=== PATIENT | male | born 2000 | race Caucasian/White ===

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

== ENCOUNTER 2021-03-17 12:26 | Outpatient (CLI) | payer BC, SELFPAY ==
[2021-03-17 14:05] LABS: SARS-CoV-2 Ag Negative (Negative)
== END 2021-03-17 12:27 | disposition home or self-care (01) ==
LOC: CHSLAB 12:29
PROVIDERS: PCP Internal Medicine; Visit Provider Internal Medicine
DX: J06.9 Acute upper respiratory infection, unspecified (principal); Z20.822 Contact with and (suspected) exposure to COVID-19
CPT/HCPCS: 87081; 87426; 87880; C9803

== ENCOUNTER 2022-12-05 12:54 | Emergency (ER) | payer OTHER, SELFPAY ==
[2022-12-05 13:07] VITALS: BP 180/73; PULSE 85; RESP 18; TEMP 36.7; O2SAT 100
--- NOTE | 2022-12-05 13:34 | ED.GENADULT ---
HPI - General Adult General Chief complaint: Ear Stated complaint: Left Ear Pain Source: patient Mode of arrival: ambulatory Limitations: no limitations History of Present Illness HPI narrative: Pt presents for evaluation of pain in the left ear since yesterday. He reports decreased hearing in the affected ear. He denies any tinnitus or drainage from the ear. He cleaned his ear with a q-tip the day prior. Denies any fever, chills, nausea, vomiting, sore throat respiratory symptoms. Related Data Allergies Allergy/AdvReac Type Severity Reaction Status Date / Time No Known Allergies Allergy Verified 12/05/22 13:14 Review of Systems Review of Systems: CONSTITUTIONAL: Denies fever, chills, or sweats. EYES: Denies visual changes, redness, or discharge. ENT: Reports left sided ear pain and hearing loss. Denies tinnitus/drainage from the left ear. Denies rhinorrhea, congestion, or sore throat CARDIOVASCULAR: Denies chest pain, palpitations, or edema. RESPIRATORY: Denies cough or dyspnea. GASTROINTESTINAL: Denies abdominal pain, nausea, vomiting, or diarrhea. GENITOURINARY: Denies dysuria or hematuria. SKIN: Denies rash or itching. MUSCULOSKELETAL: Denies back pain, joint pain, or myalgia. NEUROLOGIC: Denies headache, numbness, dizziness, or weakness. PSYCHIATRIC: Denies anxiety or depression. [facility] Past Medical History Medical History No pertinent past medical history Surgical History Surgical History (Updated 12/05/22 @ 13:36 by Jermaine Rosenthal, [facility], ) No pertinent past surgical history Family History Family History Mother Family history non-contributory Social History Social History Smoking status: Never smoker Substance use: never Living arrangements: with family Gender identity (if verbalized by the patient): Male Exam Narrative: GENERAL: Well-appearing, well-nourished, and in no acute distress. HEAD: Normocephalic, atraumatic. EYES: PERRLA and EOMI. ENT: Nares clear, no rhinorrhea or epistaxis. Mucous membranes moist. Oropharynx without tonsillar hypertrophy exudate or other lesions. Left ear canal is edematous and erythematous. Unable to visualize left TM due to yellow exudate in the canal. NECK: Supple. No adenopathy or masses. No carotid bruits or JVD CHEST: Clear to auscultation. No respiratory distress. No wheezes rales or rhonchi HEART: Regular rate and rhythm. No murmur heard. Normal peripheral pulses. ABDOMEN: Soft, nontender, nondistended, normal active bowel sounds. EXTREMITIES: Normal range of motion. No edema. SKIN: Warm, dry, no rash. NEURO: No focal deficits. Alert and oriented x3. PSYCH: Normal mood and affect. Course Course Emergency Course: This is a 22-year-old male who presented for evaluation of left-sided ear pain with hearing loss following cleaning his ears with q tips the day prior. Suspected left TM perforation. Unable to fully visualize the left TM. Perforation of left TM could be from infection vs trauma to TM from self-cleaning with Q-tip. Will discharge with Augmentin and ofloxacin. Follow up with ENT. Go to the emergency department for worsening symptoms. Patient in agreement with plan of care. Level of Care: Express Care Visit Vital Signs Vital signs: Vital Signs Temperature 36.7 C 12/05/22 13:07 Pulse Rate 85 12/05/22 13:07 Respiratory Rate 18 12/05/22 13:07 Blood Pressure 180/73 H 12/05/22 13:07 Pulse Oximetry 100 12/05/22 13:07 Oxygen Delivery Room Air 12/05/22 13:07 Temperature 36.7 C 12/05/22 13:07 Pulse Rate 85 12/05/22 13:07 Respiratory Rate 18 12/05/22 13:07 Blood Pressure 180/73 H 12/05/22 13:07 Pulse Oximetry 100 12/05/22 13:07 Oxygen Delivery Room Air 12/05/22 13:07 Procedures Ear Wax Removal Lef
== END 2022-12-05 13:35 | disposition home or self-care (01) ==
PROVIDERS: Emergency Provider Nurse Practitioner
DX: H72.92 Unspecified perforation of tympanic membrane, left ear (principal); H61.22 Impacted cerumen, left ear
CPT/HCPCS: 69210; 99213; G0463

== ENCOUNTER 2023-12-04 08:09 | Outpatient (CLI) | payer BC, SELFPAY ==
--- NOTE | ~2023-12-04 | US_ITS ---
Limited Abdominal Sonogram: Real-time sonographic imaging of the right upper quadrant was performed. Clinical History: Abnormal LFTs Findings: The liver appears echogenic, with no evidence of mass lesion or bile duct dilatation. Main portal vein demonstrates normal direction of flow. The gallbladder is well distended, and appears no rmal with no evidence of gallstone or wall thickening. The common bile duct measures 3 mm. The visua lized pancreas, aorta, and IVC are unremarkable. Impression: Diffuse fatty infiltration of the liver. Reviewed, dictated and finalized at location M. Impression: Diffuse fatty infiltration of the liver.
== END 2023-12-04 08:10 | disposition home or self-care (01) ==
PROVIDERS: PCP Internal Medicine; Visit Provider Internal Medicine
DX: R94.5 Abnormal results of liver function studies (principal); K76.0 Fatty (change of) liver, not elsewhere classified
CPT/HCPCS: 76705